=== PATIENT | female | born 1945 | race Caucasian/White ===

== ENCOUNTER → 2020-07-05 11:40 | Outpatient (CLI) | payer MEDICARE, OTHER, SELFPAY ==
[2020-07-05 12:29] LABS: COVID19 -Nasal RAPID Negative (Negative)
== END ==
PROVIDERS: PCP Family Medicine; Visit Provider Specialist
DX: Z01.812 Encounter for preprocedural laboratory examination (principal)
CPT/HCPCS: 87635

== ENCOUNTER 2020-07-06 09:04 | Day surgery (SDC) | payer MEDICARE, OTHER, SELFPAY ==
[2020-07-03 11:54] VITALS: BMI 28.5
[2020-07-06] VITALS (7 sets, daily range): BP systolic 88–158; BP diastolic 45–78; PULSE 65–82; RESP 7–19; TEMP 36.3–36.8; O2SAT 92–97; BMI 28.0
[2020-07-06] MEDS: LACTATED RINGERS 1,000 ML 100 ML IV ×2 (09:47→13:06)
--- NOTE | 2020-07-06 11:33 | PM.PREOP ---
Pre-operative Note COVID-19 COVID-19 status: Negative Result date/Date tested (Pos, Neg/Pending): 07/05/20 Interval Note History & Physical reviewed/Exam performed by Physician: Yes Changes to H&P: No
[2020-07-06] MEDS: CEFAZOLIN 2 GM/100 ML FROZ.PIGGY IV (12:21)
--- NOTE | 2020-07-06 12:40 | SUR.OPER ---
Lithotomy on padded OR bed, head on pillow, arms secured on padded arm boards at <90 degrees abduction. Legs secured in padded yellow fins stirrups.
[2020-07-06] MEDS: BUPIVACAINE 0.5% W/ EPI (PF) 30 ML VIAL INJ (12:46)
[2020-07-06] MEDS: SODIUM CHLORIDE 0.9% 50 ML INJ (12:46)
--- NOTE | 2020-07-06 13:29 | PM.OP.1 ---
Operative Date/Time/Diagnoses Date of procedure: 07/06/20 Time of procedure: 13:30 Pre-op diagnosis: Partial uterovaginal prolapse Post-op diagnosis: same Procedure & Clinicians Procedure: Colpocleisis Same procedure as scheduled: Yes Indications: Partial uterovaginal prolapse, cystocele predominant Surgeon: Rhonda Hsieh Click Yes if Unassisted: Yes Anesthesia Type: General Operative Notes Findings: Cystocele that prolapses out of the hymen, minimal rectocele, minimal uterine prolapse Closure Type: primary Specimen(s): none sent Estimated Blood Loss (mL): 20 Blood products transfused: none Procedure in detail: - Patient was brought to the operating room where she was in a supine position in [facility] and underwent a light general anesthetic. She was prepped and draped in the usual sterile fashion. 2 g of Ancef were in prior to beginning of the case. Warming was in place. Pulsatile stockings were in place. Area on anterior and posterior wall of the prolapse were marked with a marking pen and injected with a dilute solution of half percent Marcaine with epinephrine. The skin was incised with a scalpel and undermined with and removed removed with Metzenbaum scissors. 2-0 Vicryl suture was used in an interrupted fashion to close anterior to posterior on the sides creating a tunnel from the cervix to the external area. 0 Vicryl suture interrupted was placed from the anterior cervical fascia to the posterior cervical fascia to invert the cervix. The vaginal incision was closed from anterior to posterior fully inverting the cervix. Counts of instruments and sponges were correct. Patient went to recovery room in good condition. Complications: none Post-operative Condition: stable Disposition: same day surgery Plan for aftercare: Home when awake and stable
--- NOTE | 2020-07-06 13:44 | SUR.PHASEI ---
Bedside report given to DAVIN Donnelly. Pt in stable condition, vss. Transferred care of pt to DAVIN Donnelly.
== END 2020-07-06 14:15 | disposition home or self-care (01) ==
PROVIDERS: PCP Family Medicine; Referring Provider Family Medicine; Visit Provider Specialist
PROC: (CPT 57120; principal; 2020-07-06 10:15)
DX: N81.2 Incomplete uterovaginal prolapse (principal); N39.46 Mixed incontinence; I10 Essential (primary) hypertension; K21.9 Gastro-esophageal reflux disease without esophagitis
CPT/HCPCS: 57120; J0690; J1100; J2405; J2704; J3010

== ENCOUNTER → 2020-12-28 16:28 | Outpatient (CLI) | payer MEDICARE, OTHER, SELFPAY ==
--- NOTE | 2020-12-28 16:46 | DI.MRI.S_ITS ---
PROCEDURE: MR KNEE RT WO CON INDICATIONS: UNILATERAL PRIMARY OSTEOARTHRITIS RIGHT KNEE TECHNIQUE: Noncontrast sagittal PD fast spin echo and T2 fast spin echo with fat saturation, sagittal 3-D FLASH with fat saturation; coronal T1 spin echo and PD fast spin echo with fat saturation, and axial PD fast spin echo with fat saturation through the knee. COMPARISON: [facility] [place], [place], XR KNEE ARTHRITIC SERIES BI, 09/19/2020, 9:48. FINDINGS: Image quality: Excellent. Menisci: High T2 signal intensity at the posterior meniscal capsular junction of the medial meniscus. Vertically oriented high T2 signal intensity traverses the posterior horn medial meniscus, demonstrating inferior articular surface extension, indicating radial tearing. There is linear and amorphous high signal intensity within the anterior horn, body, and posterior horn of the lateral meniscus, demonstrating inferior articular surface extension, indicating complex tearing. Partial detachment of the posterior horn lateral meniscus is present. Cruciate ligaments: There is mild posterior bowing of the anterior cruciate ligament which demonstrates mild T2 signal elevation along its course. Posterior cruciate ligament is intact. Medial structures: The medial collateral ligament appears intact. Visualized portions of the pes anserinus tendons appear normal. Small amount of medial bursal fluid. Moderate T2 signal elevation within the semimembranosus tendon at the tibial insertion site. Lateral structures: The lateral collateral ligament demonstrates mild T2 signal elevation at its femoral origin. The long and short heads of the biceps femoris tendon appear intact. The popliteus tendon appears normal. Iliotibial band appears normal. Anterior structures: The quadriceps and patellar tendons appear intact. Mild T2 signal elevation within the quadriceps and patellar tendons at the patellar insertion sites. There is mild lateral subluxation of the patella. No femoral trochlear dysplasia or ventral trochlear prominence. Mild edema in the infrapatellar fat pad. Bones and cartilage: No bone marrow contusions or fractures. Mild articular cartilage loss diffusely overlies the weight-bearing aspects of the medial femoral condyle and medial tibial plateau. Mild articular cartilage loss diffusely overlies the weight-bearing aspects of the medial femoral condyle and medial tibial plateau. Severe articular cartilage loss diffusely overlies the posterior weight-bearing aspects of the lateral femoral condyle and lateral tibial plateau. Moderate articular cartilage loss overlies the patellar apex and the adjacent portions of the medial and lateral patellar facets. Joint space: There is a small knee joint effusion and a moderate Navarro's cyst. Normal appearing synovial plicae are incidentally noted. IMPRESSION: 1. Tricompartmental osteoarthritis with associated articular cartilage loss. 2. Low-grade partial-thickness anterior cruciate ligament tear. 3. Medial and lateral meniscal tearing. 4. Mild quadriceps and patellar tendinopathy. 5. Low-grade partial thickness lateral collateral ligament tear. 6. Mild medial bursitis. 7. Partial-thickness tearing of the semimembranosus tendon at the tibial insertion site. 8. Knee joint effusion and Navarro's cyst. Dictated by: Jesus Cadena M.D. on 12/31/2020 at 8:37 Approved by: Jesus Cadena M.D. on 12/31/2020 at 8:41
== END ==
PROVIDERS: PCP Family Medicine; Referring Provider Orthopaedic Surgery; Visit Provider Orthopaedic Surgery
DX: M17.11 Unilateral primary osteoarthritis, right knee (principal); S83.241A Other tear of medial meniscus, current injury, right knee, initial encounter; S83.271A Complex tear of lateral meniscus, current injury, right knee, initial encounter; S83.511A Sprain of anterior cruciate ligament of right knee, initial encounter; S83.421A Sprain of lateral collateral ligament of right knee, initial encounter; M71.561 Other bursitis, not elsewhere classified, right knee; S76.811A Strain of other specified muscles, fascia and tendons at thigh level, right thigh, initial encounter; M25.461 Effusion, right knee; M71.21 Synovial cyst of popliteal space [Baker], right knee
CPT/HCPCS: 73721

== ENCOUNTER → 2021-02-14 12:53 | Outpatient (CLI) | payer MEDICARE, OTHER, SELFPAY ==
--- NOTE | 2021-02-14 12:54 | DI.MRI.S_ITS ---
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 Optional long- and short-axis uterine nonbreath-hold T2 FSE through the uterus. Sagittal or axial dynamic VIBE during administration of contrast. Post-contrast axial or coronal VIBE/2-D FLASH with fat saturation from the iliac crests to the symphysis. Optional diffusion weighted imaging and ADC may be performed. COMPARISON: [facility], [place], US PELVIC COMPLETE, 02/08/2021, 13:06. FINDINGS: Image quality: Excellent. Uterus: Uterus measures 8.9 x 5.7 x 4.9 cm. Uterus is vertically oriented. There is abnormal nodular in thickening with hypoenhancement of the endometrium measuring 3.1 cm in thickness, (20/70). Lesion appears centered at the fundus. This demonstrates T2/T1 isointense signal. There is restricted diffusion. No local regional invasion is seen. Junctional zone appears normal. Adnexa: Both ovaries are normal in size, without suspicious cystic or solid lesions. Urinary system: Posterior bladder cystocele, (3/19). Urethra appears normal in morphology. Nodes and vessels: Mesorectal lymph node measuring 0.9 cm, (/). Iliac vessels are normal in size. Bowel and peritoneum: No pathologic free pelvic fluid. Inferior colon and small bowel loops are normal in caliber. Soft tissues: No inguinal hernias. Pelvic floor hiatus appears enlarged. There is mild pelvic floor descent appreciated. Bones: Marrow demonstrates normal overall signal. IMPRESSION: 1. Nodular thickening and hypoenhancement of the endometrium measuring up to 3.1 cm in thickness. Findings suspicious for endometrial carcinoma. -Recommend endometrial biopsy if not yet performed. 2. Mildly enlarged mesorectal lymph node measuring 0.9 cm. 3. Posterior bladder cystocele. Mild pelvic floor descent. Dictated by: Viktor Waldron M.D. on 02/14/2021 at 14:33 Approved by: Viktor Waldron M.D. on 02/14/2021 at 14:49
== END ==
PROVIDERS: PCP Family Medicine; Referring Provider Specialist; Visit Provider Specialist
DX: C54.1 Malignant neoplasm of endometrium (principal); R59.0 Localized enlarged lymph nodes; N81.10 Cystocele, unspecified
CPT/HCPCS: 72197; A9579

== ENCOUNTER → 2025-01-05 13:32 | Outpatient (CLI) | payer MEDICARE, OTHER, SELFPAY ==
--- NOTE | 2025-01-06 17:44 | DI.NM.S_ITS ---
DATE OF SERVICE: 01/05/2025 NUCLEAR CARDIOLOGY MYOCARDIAL PERFUSION STUDY PROCEDURE: Exercise treadmill stress and rest myocardial perfusion imaging study with gating to assess ejection fraction and regional wall motion. ORDERING PROVIDER: PARVIN Hoang INDICATIONS: The patient is an 79-year-old female with hypertension and atypical chest discomfort. CARDIAC STRESS: The patient was able to exercise for 6 minutes on a standard Sheldon protocol, suggesting very good exercise capacity with an SIMBA of -27%, achieving 6.1 METs. She had a normal heart rate and blood pressure response to exercise, achieving a maximum heart rate of 130 bpm (94% of her predicted maximum). She had moderate dyspnea but no chest discomfort or other anginal symptoms. Her resting ECG shows sinus rhythm with probable LVH and repolarization abnormality with a left anterior fascicular block. She likely has sinus arrhythmia versus PACs. With stress, there is marked motion artifact on the tracings that limits the interpretation but immediate recovery ECGs show the absence of any significant ST-segment shifts, although slight accentuation of T-wave abnormality that likely reflects her hypertension. She continued to have some mild irregularity, again suggestive of sinus arrhythmia versus multiple PACs. At 5 minutes of exercise at a heart rate of 118 bpm, 26.9 mCi of technetium-99m Myoview was injected and she was imaged 15 minutes later using a gated SPECT acquisition protocol. The day prior while at rest, she had been injected with 27.5 mCi of technetium-99m Myoview and was imaged 15 minutes later, again using a gated SPECT acquisition protocol. FINDINGS: 1. There is fair myocardial tracer uptake but clear breast attenuation artifact that affects the interpretation. The lung/heart ratio is normal at 0.33 with a normal TID ratio of 0.87. 2. Quantitated gated SPECT: Post-stress ejection fraction is 81% without any focal wall motion abnormality, and specifically the inferior wall and apex have normal contractility. The resting ejection fraction is 76% with a normal resting end-diastolic volume of 93 mL. 3. Myocardial perfusion imaging: Post-stress supine images show a moderate perfusion defect throughout the inferior wall, extending to the apical segments, in a pattern consistent with diaphragmatic attenuation artifact and breast attenuation artifact. Unfortunately, the patient was unable to lie prone to assess for this. The resting images show an identical perfusion pattern without any clear areas of improvement. IMPRESSION: 1. Probable normal myocardial perfusion study although with mildly reduced sensitivity because of marginal image quality. 2. [id number] fixed inferior and apical defect that likely reflects diaphragmatic and breast attenuation artifact, respectively. While a previous nontransmural infarction cannot be excluded, the absence of any wall motion abnormality in these distributions would mitigate against this. There is no evidence for any myocardial ischemia. 3. Normal left ventricular size and systolic function. 4. Very good exercise capacity without angina and only nonspecific ST- segment abnormalities, likely related to underlying hypertension. She demonstrated probable sinus arrhythmia versus multiple PACs but without any complex ectopy. Benita Hernandez - RS/fn/ME doc#: [id number]/job#: [id number] dd: 01/06/2025 17:13:00 dt: 01/06/2025 17:26:00 DICTATING MD/COPIES TO: Amrit Santiago MD; PARVIN Hoang COPIES MNE: ELIZABETH; ; PARVIN Hoang
== END ==
PROVIDERS: Referring Provider Nurse Practitioner Acute Care; Visit Provider Nurse Practitioner Acute Care
DX: R07.9 Chest pain, unspecified (principal); R42 Dizziness and giddiness; I16.0 Hypertensive urgency
CPT/HCPCS: 78452; 93017; A9502

== ENCOUNTER → 2025-05-10 16:04 | Outpatient (CLI) | payer MEDICARE, OTHER, SELFPAY ==
[2025-05-10 17:14] LABS: Appearance Urine UA CLEAR; Bilirubin Urine UA NEGATIVE (NEGATIVE); Color Urine UA YELLOW; Glucose Urine UA NEGATIVE (Negative); Ketones Urine UA NEGATIVE (NEGATIVE); Leukocyte Esterase Urine UA NEGATIVE (NEGATIVE); Nitrite Urine UA NEGATIVE (Negative); Occult Blood Urine UA NEGATIVE (Negative); Protein Urine UA NEGATIVE (Negative); Specific Gravity Urine UA <=1.005 (1.000-1.035); Urobilinogen Urine UA 0.2 E.U./dL (0.2)
[2025-05-10 17:19] LABS: pH Urine UA 7.5 (4.5-8.0)
[2025-05-10 17:24] LABS: Culture Indicated Urine Cult Not Indicated
== END ==
PROVIDERS: PCP Obstetrics & Gynecology; Visit Provider Obstetrics & Gynecology Gynecology
DX: N95.0 Postmenopausal bleeding (principal); N39.46 Mixed incontinence; N81.11 Cystocele, midline; N81.9 Female genital prolapse, unspecified; N81.6 Rectocele; R33.9 Retention of urine, unspecified
CPT/HCPCS: 51701; 81001; 99214

== ENCOUNTER → 2025-08-16 11:19 | Outpatient (CLI) | payer MEDICARE, OTHER, SELFPAY ==
--- NOTE | 2025-08-16 | DI.MRI.S_ITS ---
PROCEDURE: MR THORACIC SPINE WO CON INDICATIONS: BACK PX TECHNIQUE: Noncontrast sagittal T1 spine echo and T2 fast spin echo, sagittal STIR, and T2 fast spin echo through the thoracic spine. COMPARISON: [facility], , MR LUMBAR SPINE WO CON, 08/16/2025, 12:00. FINDINGS: Image quality: Excellent. Alignment and Curvature: There is normal bony alignment. Bone Marrow: Marrow is of normal overall signal. No acute vertebral body compression fractures. Spinal Cord: Visualized spinal cord is normal in size and signal. Paraspinous Soft Tissues: No paravertebral masses. Miscellaneous: On axial images, central canal and foramina appear widely patent at all scanned levels. There are multilevel disc bulges. There is lower thoracic facet arthropathy without significant foraminal compromise. There are multilevel disc bulges without canal stenosis. IMPRESSION: Plan for a no acute compression fractures. 2. Multilevel disc bulges without thoracic canal stenosis. 3. Multilevel level lower thoracic facet arthropathy without foraminal nerve root impingement. Dictated by: Christian Wakefield M.D. on 08/16/2025 at 14:52 Approved by: Christian Wakefield M.D. on 08/16/2025 at 14:55
--- NOTE | 2025-08-16 12:08 | DI.MRI.S_ITS ---
PROCEDURE: MR LUMBAR SPINE WO CON INDICATIONS: LUMBAR PX TECHNIQUE: Noncontrast sagittal T1 spin echo and T2 fast echo, sagittal STIR, and T2 fast spin echo through the lumbar spine. In cases with scoliosis, additional coronal T2 fast spin echo may be performed. COMPARISON: None. FINDINGS: Image quality: Excellent. Alignment and Curvature: Mild S-shaped curvature. Trace retrolisthesis of L1 on L2. 3 mm anterolisthesis of L3 on L4. 3 mm retrolisthesis of L4 on L5. Trace anterolisthesis of L5 on S1. Bone Marrow: Marrow is of normal overall signal. No acute vertebral body compression fractures. Spinal Cord: Conus medullaris terminates at the L1-L2 level. Visualized cord demonstrates normal signal and size. Paraspinous Soft Tissues: No paravertebral masses. T12-L1: Disc bulge. No canal stenosis or foraminal stenosis. L1-L2: Trace retrolisthesis. Posterior disc osteophyte complex. Facet hypertrophy. No canal stenosis or foraminal stenosis. L2-L3: Disc disc bulge. Facet hypertrophy. No canal stenosis or significant foraminal stenosis. L3-L4: Chronic disc height loss. 3 mm anterolisthesis. Relatively exuberant epidural lipomatosis results in a trefoil appearance of the thecal sac. Prominent bilateral facet hypertrophy. No significant foraminal stenosis. L4-L5:: Posterior disc post osteophyte. Facet and ligament hypertrophy. Borderline canal stenosis. Mild bilateral foraminal stenosis. L5-S1: Trace anterolisthesis. Disc bulge. Facet hypertrophy. No canal stenosis or significant foraminal stenosis. IMPRESSION: 1. Multilevel underlying facet arthropathy. 2. Findings are most significant at L3-L4. At this level, there is relatively exuberant epidural lipomatosis resulting in intra 4 L appearance on the thecal sac, with potential significant canal stenosis symptoms. Recommend clinical correlation. 3. Borderline canal stenosis at L4-L5. 4. No canal stenosis at other levels. No significant foraminal stenosis. Dictated by: Christian Wakefield M.D. on 08/16/2025 at 14:45 Approved by: Christian Wakefield M.D. on 08/16/2025 at 14:52
== END ==
PROVIDERS: PCP Nurse Practitioner Acute Care; Referring Provider Physician Assistant; Visit Provider Physician Assistant
DX: M47.814 Spondylosis without myelopathy or radiculopathy, thoracic region (principal); M51.34 Other intervertebral disc degeneration, thoracic region; M47.816 Spondylosis without myelopathy or radiculopathy, lumbar region; M47.817 Spondylosis without myelopathy or radiculopathy, lumbosacral region; M43.16 Spondylolisthesis, lumbar region; M54.50 Low back pain, unspecified; E88.2 Lipomatosis, not elsewhere classified; M41.9 Scoliosis, unspecified
CPT/HCPCS: 72146; 72148